=== PATIENT | male | born 1990 | race African-American/Black ===

== ENCOUNTER 2017-06-24 16:30 | Emergency (ER) | payer OTHER ==
[~2017-06-24] VITALS: Ht 188 cm; Wt 79.5 kg
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
[2017-06-24] MEDS ORDERED: MOBI4TAB PO (19:22)
[2017-06-24 19:35] VITALS: BP 135/82
== END 2017-06-24 19:42 | disposition home or self-care (01) ==
LOC: M ED 16:30
DX: Z04.1 Encounter for examination and observation following transport accident (principal); S80.01XA Contusion of right knee, initial encounter; S06.0X0A Concussion without loss of consciousness, initial encounter; V43.52XA Car driver injured in collision with other type car in traffic accident, initial encounter; Y92.410 Unspecified street and highway as the place of occurrence of the external cause; Y93.89 Activity, other specified; Y99.8 Other external cause status; F17.210 Nicotine dependence, cigarettes, uncomplicated

== ENCOUNTER 2018-04-26 08:12 | Emergency (ER) | payer OTHER ==
[2018-04-26] MEDS: ONDANSETRON 4 MG ORAL DISINTEGRATING TAB (Q0162 PER 1MG) PO (08:46)
== END 2018-04-26 08:59 | disposition home or self-care (01) ==
LOC: M ED 08:12
DX: K29.70 Gastritis, unspecified, without bleeding (principal); R11.2 Nausea with vomiting, unspecified
CPT/HCPCS: Q0162

== ENCOUNTER 2018-05-16 08:15 | Emergency (ER) | payer OTHER | END 2018-05-16 08:54 | disposition home or self-care (01) | LOC: M ED 08:15 | DX: R19.7 Diarrhea, unspecified (principal) | CPT/HCPCS: 99282 ==